=== PATIENT | male | born 1960 | race African-American/Black ===

== ENCOUNTER 2018-11-14 23:25 | Emergency (ER) | payer MEDICAID ==
[~2018-11-14] VITALS: Ht 185.4 cm; Wt 99.8 kg
[2018-11-14 23:25] VITALS: BP_SYST 118
[2018-11-14] MEDS ORDERED: AMLO2.5T2 PO (23:41)
[2018-11-15] MEDS ORDERED: ONDANSETRON 4 MG ODT TAB PO ONE
[2018-11-15] MEDS ORDERED: KETOROLAC TROMETHAMINE 60 MG/2 ML VIAL IM ONE
[2018-11-15 00:18] VITALS: BP_SYST 122
== END 2018-11-15 00:18 ==
LOC: SED 23:25
DX: I10 Essential (primary) hypertension (principal); E11.9 Type 2 diabetes mellitus without complications
CPT/HCPCS: 96372; 99283; J1885; Q0162

== ENCOUNTER 2018-12-03 20:15 | Emergency (ER) | payer MEDICAID ==
[~2018-12-03] VITALS: Ht 190.5 cm; Wt 111.1 kg
[~2018-12-03 20:15] MED LIST: AMLO2.5T2 PO
--- NOTE | 2018-12-03 20:15 | NUR ---
Patient to ER [facility] for evaluation
[2018-12-03 20:20] VITALS: BP_SYST 136
--- NOTE | 2018-12-03 20:25 | NUR ---
Pt BIB PD for medical clearance. Pt states he has been drinking and has hx of HTN. Blood pressure in the ED is within normal limits. Pt also C/O of mild foot discomfort. Will continue to monitor.
--- NOTE | 2018-12-03 20:35 | NUR ---
ER Dr. Horner examining patient.
[2018-12-03 20:48] VITALS: BP_SYST 136
--- NOTE | 2018-12-03 20:48 | NUR ---
Patient given written and verbal discharge instructions and verbalizes understanding. ER MD discussed with patient the results and treatment provided. Patient in stable condition. ID arm band removed. Patient educated on pain management and to follow up with PMD. Pain Scale 0. Opportunity for questions provided and answered. Medication side effect fact sheet provided.
== END 2018-12-03 20:48 ==
LOC: SED 20:15
DX: Z02.89 Encounter for other administrative examinations (principal); E11.9 Type 2 diabetes mellitus without complications; I10 Essential (primary) hypertension
CPT/HCPCS: 99283

== ENCOUNTER 2019-02-03 00:38 | Emergency (ER) | payer MEDICAID ==
[~2019-02-03] VITALS: Ht 188 cm; Wt 106.6 kg
[2019-02-03 00:45] VITALS: BP_SYST 164
[2019-02-03 03:15] VITALS: BP_SYST 152
== END 2019-02-03 03:15 | disposition home or self-care (01) ==
LOC: SED 00:38
DX: M25.551 Pain in right hip (principal); M25.552 Pain in left hip; M79.604 Pain in right leg; M79.605 Pain in left leg; F17.210 Nicotine dependence, cigarettes, uncomplicated; E11.9 Type 2 diabetes mellitus without complications; Z79.899 Other long term (current) drug therapy
CPT/HCPCS: 72100-TC; 72170-TC; 99283

== ENCOUNTER 2020-10-21 03:30 | Emergency (ER) | payer MEDICAID ==
[~2020-10-21] VITALS: Ht 185.4 cm; Wt 99.8 kg
[2020-10-21 03:33] VITALS: BP_SYST 115
[2020-10-21] MEDS ORDERED: IBUPROFEN 800 MG TABLET PO ONE (04:00)
[2020-10-21] MEDS ORDERED: IBUPROFEN 800 MG TABLET ONE (04:06)
[2020-10-21 05:59] VITALS: BP_SYST 136
== END 2020-10-21 05:58 | disposition home or self-care (01) ==
LOC: SED 03:30
DX: M79.662 Pain in left lower leg (principal); I10 Essential (primary) hypertension; E11.9 Type 2 diabetes mellitus without complications
CPT/HCPCS: 99283

== ENCOUNTER 2023-02-21 21:31 | Emergency (ER) | payer MEDICAID, OTHER ==
[~2023-02-21] VITALS: Ht 172.7 cm; Wt 108.9 kg
[2023-02-21 21:58] VITALS: BP_SYST 134; PULSE 80; RESP 17; TEMP 97.9; O2SAT 98
[2023-02-21 23:53] LABS: BASOPHILS % (AUTO) 0.9 % (0.0-2.0); EOSINOPHILS # (AUTO) 0.2 K/uL (0.0-0.4); EOSINOPHILS % (AUTO) 5.1 % (0.0-4.0); HEMATOCRIT 33.8 % (36-54); HEMOGLOBIN 11.3 g/dL (14.0-18.0); LYMPHOCYTES # (AUTO) 1.8 K/uL (1.0-5.5); LYMPHOCYTES % (AUTO) 37.9 % (20.5-51.5); MEAN CORPUSCULAR HEMOGLOBIN 34 pg (27-31); MEAN CORPUSCULAR HGB CONC 33 % (32-36); MEAN CORPUSCULAR VOLUME 102 fL (79.0-98.0); MONOCYTES # (AUTO) 0.5 K/uL (0.0-1.0); MONOCYTES % (AUTO) 9.5 % (1.7-9.3); NEUTROPHILS # (AUTO) 2.2 K/uL (1.8-7.7); NEUTROPHILS % (AUTO) 46.6 % (40.0-70.0); PLATELET COUNT (AUTO) 211 K/uL (130-430); RED BLOOD CELL COUNT(AUTO) 3.32 MIL/uL (4.2-6.2); RED CELL DISTRIBUTION WIDTH 13.1 % (9.0-15.0); WHITE BLOOD COUNT (AUTO) 4.8 K/uL (4.8-10.8)
[2023-02-21 23:55] LABS: CALCIUM 8.7 mg/dL (8.4-11.0); CREATININE 1.02 mg/dL (0.55-1.30)
[2023-02-22 00:17] LABS: ALBUMIN 3.5 g/dL (3.4-4.8); TOTAL BILIRUBIN 0.3 mg/dL (0.0-1.0)
[2023-02-22 00:18] LABS: ERYTHROCYTE SEDIMENTATION RATE 13 MM/HR (0-15)
[2023-02-22 00:22] LABS: BARBITURATE, URINE NEGATIVE (NEG <=200); BENZODIAZEPINE, URINE NEGATIVE (NEG <=150); CANNABINOID, URINE NEGATIVE (NEG <=50); COCAINE, URINE NEGATIVE (NEG <=150); METHAMPHETAMINES SCREEN,URINE NEGATIVE (NEG <=500); OPIATE, URINE POSITIVE (NEG <=100); PHENCYCLIDINE SCREEN,URINE NEGATIVE (NEG <=25); UR TRICYCLIC ANTIDEPRESSANTS NEGATIVE (NEG <=300); URINE AMPHETAMINE NEGATIVE (NEG <=500); URINE METHADONE NEGATIVE (NEG <=200); URINE OXYCODONE SCREEN NEGATIVE (NEG <=100); URINE PROPOXYPHENE SCREEN NEGATIVE (NEG <=300)
[2023-02-22 00:37] LABS: BILIRUBIN,URINE NEGATIVE (NEGATIVE); BLOOD, URINE NEGATIVE (NEGATIVE); CLARITY/URINE CLEAR (CLEAR); COLOR,URINE YELLOW (YELLOW); GLUCOSE,URINE NEGATIVE (NEGATIVE); KETONES,URINE NEGATIVE (NEGATIVE); LEUKOCYTE ESTERASE ,URINE NEGATIVE (NEGATIVE); NITRITE, URINE NEGATIVE (NEGATIVE); PROTEIN URINE NEGATIVE (NEGATIVE); UROBILINOGEN,URINE 0.2 (0.2-1.0)
[2023-02-22] MEDS ORDERED: MORPHINE 4 MG INJ. 4 MG/ML VIAL IVP ONE (02:00)
[2023-02-22] MEDS ORDERED: KETOROLAC TROMETHAMINE 60 MG/2 ML VIAL IM ONE (07:15)
[2023-02-22] MEDS ORDERED: NAPR-690 PO (07:20)
[2023-02-22 07:31] VITALS: BP_SYST 120; PULSE 83; RESP 16; TEMP 98; O2SAT 100
== END 2023-02-22 07:31 | disposition left against medical advice (07) ==
LOC: SED 21:31
DX: G57.92 Unspecified mononeuropathy of left lower limb (principal); M54.50 Low back pain, unspecified; M79.662 Pain in left lower leg; R20.2 Paresthesia of skin; E11.9 Type 2 diabetes mellitus without complications; I10 Essential (primary) hypertension; Z79.899 Other long term (current) drug therapy; Z20.822 Contact with and (suspected) exposure to COVID-19
CPT/HCPCS: 99285; 72132; 87426; 80307; 80053; 85025; 85651; 87040; 36415; 76376; 83605; 81003; 82397; Q9967